=== PATIENT | male | born 1960 | race Caucasian/White ===

== ENCOUNTER 2017-01-21 19:43 | Emergency (ER) | payer OTHER ==
[2017-01-21 21:26] LABS: HEMOGLOBIN 16.1 gm/dl (14.0-17.5); RED BLOOD COUNT 5.17 M/UL (4.20-5.50); WHITE BLOOD COUNT 7.5 K/UL (4.5-11.0)
[2017-01-21 21:46] LABS: BUN/CREATININE RATIO 14 (0-10)
== END 2017-01-22 07:55 | disposition home or self-care (01) ==
LOC: ER1 19:43
PROVIDERS: Emergency Medicine
DX: F15.129 Other stimulant abuse with intoxication, unspecified (principal); L03.114 Cellulitis of left upper limb; I10 Essential (primary) hypertension; Z90.49 Acquired absence of other specified parts of digestive tract
CPT/HCPCS: 36415; 80048; 82550; 85025; 93005; 96372; 96374; 96375; 99284; J2060; J7030; J7050

== ENCOUNTER 2021-03-01 08:41 | Emergency (ER) | payer OTHER ==
[~2021-03-01 08:41] MED LIST: NORCO 7.5-3251 EACH PO; PREDNISONE 20 M20 MG PO
[2021-03-01 10:13] LABS: HEMOGLOBIN 16.1 gm/dl (14.0-17.5); RED BLOOD COUNT 5.4 M/UL (4.20-5.50); WHITE BLOOD COUNT 6.8 K/UL (4.5-11.0)
[2021-03-01 10:32] LABS: BUN/CREATININE RATIO 13 (0-10)
[2021-03-01] MEDS ORDERED: ZESTRIL10 MG PO (12:37)
[2021-03-01] MEDS ORDERED: FLOMAX 0.4 MG0.4 MG PO (12:37)
[2021-03-01] MEDS ORDERED: MOBIC15 MG PO (12:37)
== END 2021-03-01 13:11 | disposition home or self-care (01) ==
LOC: ER1 08:41
PROVIDERS: Physician Assistant
DX: K62.5 Hemorrhage of anus and rectum (principal); K21.9 Gastro-esophageal reflux disease without esophagitis; R91.1 Solitary pulmonary nodule; J44.9 Chronic obstructive pulmonary disease, unspecified; I10 Essential (primary) hypertension; F17.200 Nicotine dependence, unspecified, uncomplicated; Z90.49 Acquired absence of other specified parts of digestive tract; Z88.0 Allergy status to penicillin; Z79.899 Other long term (current) drug therapy; Z85.038 Personal history of other malignant neoplasm of large intestine; Z76.0 Encounter for issue of repeat prescription
CPT/HCPCS: 80053; 81001; 83690; 85025; 99284; Q9967

== ENCOUNTER 2021-07-10 17:37 | Emergency (ER) | payer OTHER ==
[~2021-07-10 17:37] MED LIST changes: +FLOMAX 0.4 MG0.4 MG PO; +MOBIC15 MG PO; +ZESTRIL10 MG PO
[2021-07-10 19:15] LABS: HEMOGLOBIN 16.8 gm/dl (14.0-17.5); RED BLOOD COUNT 5.54 M/UL (4.20-5.50); WHITE BLOOD COUNT 7.2 K/UL (4.5-11.0)
[2021-07-10 19:36] LABS: BUN/CREATININE RATIO 11 (0-10)
== END 2021-07-10 22:00 | disposition left against medical advice (07) ==
LOC: ER1 17:37
PROVIDERS: Student in an Organized Health Care Education/Training Program
DX: M54.6 Pain in thoracic spine (principal); M54.50 Low back pain, unspecified; I10 Essential (primary) hypertension; F17.200 Nicotine dependence, unspecified, uncomplicated; Z20.822 Contact with and (suspected) exposure to COVID-19
CPT/HCPCS: 72129; 72132; 80053; 85025; 96374; 99284; J2270; Q9967; U0002

== ENCOUNTER 2022-01-17 17:28 | Emergency (ER) | payer OTHER ==
[2022-01-17 21:46] LABS: HEMOGLOBIN 16.9 gm/dl (14.0-17.5); RED BLOOD COUNT 5.52 M/UL (4.20-5.50); WHITE BLOOD COUNT 10.8 K/UL (4.5-11.0)
[2022-01-17] MEDS ORDERED: OMNICEF 300 MG300 MG PO (23:02)
== END 2022-01-17 23:23 | disposition home or self-care (01) ==
LOC: ER1 17:28
PROVIDERS: Physician Assistant
DX: E86.0 Dehydration (principal); R82.81 Pyuria; F15.20 Other stimulant dependence, uncomplicated; R52 Pain, unspecified; J44.9 Chronic obstructive pulmonary disease, unspecified; I25.10 Atherosclerotic heart disease of native coronary artery without angina pectoris; I25.2 Old myocardial infarction; F17.200 Nicotine dependence, unspecified, uncomplicated; Z88.0 Allergy status to penicillin
CPT/HCPCS: 71045; 80053; 80307; 81001; 82550; 82553; 84484; 85025; 87086; 93005; 99284